=== PATIENT | female | born 1965 | race Caucasian/White ===

== ENCOUNTER 2023-02-11 07:31 | Outpatient (CLI) | payer BC, SELFPAY | END 2023-02-11 07:32 | disposition home or self-care (01) | PROVIDERS: PCP Internal Medicine; Referring Provider Internal Medicine; Visit Provider Internal Medicine | DX: E03.2 Hypothyroidism due to medicaments and other exogenous substances (principal); E03.9 Hypothyroidism, unspecified; Z13.1 Encounter for screening for diabetes mellitus; Z13.6 Encounter for screening for cardiovascular disorders | CPT/HCPCS: 80061; 82947; 84443 ==

== ENCOUNTER 2023-04-05 14:53 | Outpatient (CLI) | payer BC, SELFPAY ==
--- NOTE | 2023-04-05 15:00 | CRLHL7_ITS ---
For Patients: As a result of the Century Cures Act, medical imaging exams and procedure reports are released immediately into your electronic medical record. You may view this report before your referring provider. If you have questions, please contact your health care provider. BILATERAL DIGITAL SCREENING MAMMOGRAM WITH TOMOSYNTHESIS AND COMPUTER-AIDED DETECTION CLINICAL HISTORY: Routine screening exam. COMPARISON: None. TECHNIQUE: Digital mammogram in CC and MLO projections including computer-aided detection (CAD). Tomosynthesis utilized. BREAST COMPOSITION: There are areas of scattered fibroglandular density. FINDINGS: RIGHT Breast: Focal asymmetric density within the upper outer quadrant 6 cm from the nipple. LEFT Breast: No suspicious findings. IMPRESSION: RIGHT breast asymmetry/mass. RECOMMENDATIONS: Additional mammographic views of the RIGHT breast including 3D spot compression CC/MLO. RIGHT breast ultrasound may also be required. BI-RADS Category 0: Incomplete: Need Additional Imaging Evaluation and/or Prior Mammograms for Comparison [facility] will contact the patient for follow-up. A lay language report of this examination will be provided to the patient. Dictated by Pranay Berry MD @ 04/20/2023 12:38:11 PM laisha/Dictated by: Pranay Berry MD @ 04/20/2023 12:38:00 PM (Electronically Signed)
== END 2023-04-05 14:54 | disposition home or self-care (01) ==
LOC: MAMMO 14:54
PROVIDERS: PCP Internal Medicine; Visit Provider Internal Medicine
DX: Z12.31 Encounter for screening mammogram for malignant neoplasm of breast (principal); N63.10 Unspecified lump in the right breast, unspecified quadrant
CPT/HCPCS: 77063; 77067

== ENCOUNTER 2023-05-04 10:33 | Outpatient (CLI) | payer BC, SELFPAY ==
--- NOTE | 2023-05-04 10:45 | CRLHL7_ITS ---
For Patients: As a result of the Cures Act, medical imaging exams and procedure reports are released immediately into your electronic medical record. You may view this report before your referring provider. If you have questions, please contact your health care provider. DIGITAL DIAGNOSTIC RIGHT MAMMOGRAM USING TOMOSYNTHESIS AND COMPUTER-AIDED DETECTION INDICATION: Follow-up a RIGHT breast asymmetry. TECHNIQUE: Spot compression views of the upper outer RIGHT breast in the CC and MLO projection. Digital breast tomosynthesis utilized. COMPARISON: 02/04/2021. 02/12/2022. FINDINGS: Breast Composition: There are areas of scattered fibroglandular density. No underlying mass. No architecture distortion. No suspicious microcalcifications. Ultrasound is not recommended at this time. Annual mammography is recommended. These findings were discussed briefly with the patient. IMPRESSION: Negative additional views of the RIGHT breast. Annual mammography recommended. BI-RADS Category 1: Negative A lay language report of this examination will be provided to the patient. Dictated by: Arya Cordova MD @05/04/2023 11:16:06 AM /Dictated by: Arya Cordova MD @ 05/04/2023 11:16:00 AM (Electronically Signed)
== END 2023-05-04 10:34 | disposition home or self-care (01) ==
LOC: MAMMO 10:33
PROVIDERS: PCP Internal Medicine; Visit Provider Internal Medicine
DX: N63.10 Unspecified lump in the right breast, unspecified quadrant (principal); R92.8 Other abnormal and inconclusive findings on diagnostic imaging of breast
CPT/HCPCS: 77065; G0279

== ENCOUNTER 2023-11-29 14:04 | Outpatient (CLI) | payer BC, SELFPAY | END 2023-11-29 14:05 | disposition home or self-care (01) | LOC: NFLDREF 14:04 | PROVIDERS: PCP Internal Medicine; Visit Provider Internal Medicine | DX: Z01.818 Encounter for other preprocedural examination (principal) | CPT/HCPCS: 80053 ==

== ENCOUNTER 2023-12-12 06:04 | Day surgery (SDC) | payer BC, SELFPAY ==
[2023-12-12] VITALS (19 sets, daily range): BP systolic 117–155; BP diastolic 63–94; PULSE 39–61; RESP 14–19; TEMP 36.1–36.4; O2SAT 90–100; BMI 38.4
[2023-12-12] MEDS: ACETAMINOPHEN 500 MG TABLET 1000 MG PO (07:02)
[2023-12-12] MEDS: SODIUM CHLORIDE 0.9 % (FLUSH) 10 ML SYRINGE IVF ×2 (07:03→15:04)
[2023-12-12] MEDS: LACTATED RINGERS 1000 ML 1,000 ML 100 ML IV ×2 (07:03→07:57)
[2023-12-12] MEDS: OXYCODONE (CR) 10 MG TAB.ER.12H PO (07:03)
[2023-12-12] MEDS: fentaNYL 100 MCG/2 ML inj IVP (07:07)
[2023-12-12] MEDS: MIDAZOLAM HCL 1 MG/ML inj IVP (07:07)
--- NOTE | 2023-12-12 07:08 | W.PM.H&PU ---
History & Physical Update History & Physical Update H&P Reviewed and patient assessed: No changes noted
--- NOTE | 2023-12-12 07:23 | SUR.PREOP ---
TIME?OUT:?0707 PT/RN/MDA?VERIFICATION?OF?SURGICAL?SITE,?PROCEDURE,?AND?CONSENT OBTAINED?PRIOR?TO?INVASIVE?PROCEDURE.
[2023-12-12] MEDS: CEFAZOLIN 2 GM in 0.9 % SODIUM CHLORIDE Mini-bag 100 ML IVPB (07:30)
[2023-12-12] MEDS: TRANEXAMIC ACID 100 MG/ML INJ 1000 MG IV (07:35)
--- NOTE | 2023-12-12 08:49 | PM.ORPRC ---
Procedure Note Date of procedure: 12/12/23 Procedure: PREOPERATIVE DIAGNOSIS: 1. Right knee osteoarthritis, primary, severe 2. Right knee retained deep implant (screws for ACL fixation in the remote past) POSTOPERATIVE DIAGNOSIS: 1. Right knee osteoarthritis, primary, severe 2. Right knee retained deep implant (screws for ACL fixation in the remote past) PROCEDURE: 1. Right total knee arthroplasty 2. Right distal femur deep implant removal (ACL screw) SURGEON: Mook Salvador MD. TUBE WINDER: OLIVERIO Barkley - Of note, a skilled assistant printer floor covering was critical for this case to aid in patient positioning, tissue retraction, limb manipulation/positioning, and closure. ANESTHESIA: Spinal anesthetic EBL: 50ml IMPLANTS: DePuy J&J uncemented femur/tibia, cemented patella TKA - Attune Press fit PS femur size 6 narrow, size 5 tibia, 5 poly spacer, 30 a mm cemented patella TOURNIQUET: 90 min at 300 torr COMPLICATIONS: None evident INDICATIONS: The patient is a pleasant 58-year-old female who has experienced severe right knee pain and difficulty bearing weight. Workup included x-rays which revealed severe secondary osteoarthrosis in the knee. History is notable for previous ACL reconstruction of BTB autograft with metallic screws for both tibial and femoral fixation. Beyond that, the deformity, the dysfunction, and the pain limited her daily life. Given the failure of nonoperative management, recommendation was made for surgery. FINDINGS: Full-thickness chondral loss medial compartment as well as lateral and patellofemoral compartments. Degenerative meniscus pathology. ACL a centrally absent. Metallic screws in both the femur and tibia noted, but only the femoral screw was blocking and our implant. DESCRIPTION OF PROCEDURE: Following a thorough discussion of risks, benefits, and alternatives consent was obtained and the right knee was marked. The patient was brought to the operating room and placed supine on the operating table. Induction of anesthesia was undertaken. 2 g IV Ancef and 1 g tranexamic acid was administered within 1 hr of incision preoperatively. Proper time-out was performed identifying proper patient, site, procedure. The operative extremity was prepped and draped in the appropriate sterile fashion using ChloraPrep after the patient was positioned supine with all bony prominences well padded. A longitudinal, anterior, midline skin incision was made starting approximately 3cm proximal to the superior pole of the patella and advanced distal to the tibial tubercle. A sub vastus approach was utilized. After mobilizing the patella, retropatellar fatpad was resected and the synovium in the suprapatellar pouch excised to visualize the anterior femoral cortex. We began with cutting the patella to help improve mobility of this patella and quad tendon. The patella was initially measured and found have a thickness of 30 mm. It was resected back to approximately 28.5 mm. Femoral preparation was performed via an intramedullary guide. Step drill allowed access into the femoral canal. The distal cutting guide was placed with 5? of valgus and 11 mm cut on the distal femur due to a 5-7 degree flexion contracture. Femur was sized using a anterior referencing guide in 3? of external rotation. This found have a best fit with the sizing noted above. The 4 in 1 cutting block was then placed, and the distal femur shaped accordingly. The box cut was then created but metallic screw on the distal femur was encountered. We had to remove this. A screw removal set was opened to help remove the screw. Beyond that, rongeur and curette were utilized to debride the screw tunnel. Thereafter, the trial implant was inserted to confirm appropriate fit. We turned our attention to the proximal tibia. Extramedullary guide was utilized for cutting with the goal of being 90 degree cut from the mechanical axis of the tibia in the varus/valgus plane utilizing tibial crest as the primary alignment. Initially a 2 mm resection was performed from the medial tibial plateau. Ultimately, balancing was achieved in both flexion and extension in both varus and valgus. The knee was able to achieve full extension comfortably. It was sized to be a best fit with as noted above. The patella prep was completed with drilling and a trial placed. At this stage, trial implants were removed, the tibia and femoral components were opened and inserted. Thereafter, the patella was thoroughly irrigated normal saline and dried. The cement was previously mixed on the back table and cement placed followed by the implant. This was clamped and allowed remained stable until the cement cured. The real poly spacer was opened and inserted. All extra cement was removed, and a 3 min Betadine soak performed. Finally, a final irrigation round with normal saline was performed. Closure performed with 0 PDS and #0 Stratafix for the quad tendon/retinaculum. 2-0 Vicryl/Stratafix for the subcutaneous and 4-0 Monocryl for subcuticular closure. Dressings were applied and the patient was awoken from anesthesia after the tourniquet deflated and transferred the PACU in stable condition. A skilled assistant printer floor covering was critical for this case to aid in patient positioning, tissue retraction, bone exposure, limb manipulation/positioning, patient safety, and closure. PLAN: 1. Weight bear as tolerated operative extremity. 2. 23 hr perioperative antibiotics. 3. Ice. 4. PT/OT consults for ambulation assistance/mobility education. 5. Social work consult for discharge planning. 6. DVT prophylaxis with at SCDs, Cachorro Hose, and aspirin twice daily.
--- NOTE | 2023-12-12 09:32 | W.ANESCHARGE ---
Anesthesia Charges Start Date/Time Anesthesia Start Date: 12/12/23 Anesthesia Start Time: 07:21 Stop Date/Time Anesthesia Stop Date: 12/12/23 Anesthesia Stop Time: 09:31
--- NOTE | 2023-12-12 09:36 | CRLHL7_ITS ---
For Patients: As a result of the Cures Act, medical imaging exams and procedure reports are released immediately into your electronic medical record. You may view this report before your referring provider. If you have questions, please contact your health care provider. Indication: POST SURGERY TOTAL KNEE Technique: Two views right knee Findings/Impression: Hardware from a right total knee arthroplasty is in satisfactory position. Bone alignment is normal. No sign of acute fracture. Postop changes are within normal limits. Dictated by Pranay Berry MD @ 12/13/2023 6:16:33 AM (Electronically Signed)
--- NOTE | 2023-12-12 09:58 | SUR.PHASEI ---
Patient meets discharge criteria from PACU
--- NOTE | 2023-12-12 10:21 | P.NB_ITS ---
Nerve Block Nerve Block Time Seen by Provider: 07:13 Date Seen: 12/12/23 Type of block requested by surgeon for post-operative analgesia: adductor canal Side: right Time out performed: Yes Verification of patient name: Yes Verification of date of : Yes Site marking: site marked Name of person performing procedure: Hugh Continuous monitoring Was continuous monitoring of O2 sat, B/P, monitor and storage bin tender, recorded every 15 minutes?: Yes Procedure Checklist: sterile prep, needles and gloves Ultrasound guided. Images saved: Yes Medications given in 5ml increments after negative aspiration: Ropivicaine %: 0.5 mL: 20 Needle gauge: 20 Decadron (mg): 10 Precedex (mcg): 25 Patient tolerated procedure well: Yes Additional comments: Needle noted adjacent to nerve Block Charges Block Charge (with Pro Fee): Femoral Nerve Use of Ultrasound Machine for Block: Yes- US Guidance/pain block
--- NOTE | 2023-12-12 10:22 | W.PM.NB ---
Nerve Block Nerve Block Time Seen by Provider: 07:13 Date Seen: 12/12/23 Type of block requested by surgeon for post-operative analgesia: geniculars Side: right Time out performed: Yes Verification of patient name: Yes Verification of date of : Yes Site marking: site marked Name of person performing procedure: Hugh Continuous monitoring Was continuous monitoring of O2 sat, B/P, color television console monitor, recorded every 15 minutes?: Yes Procedure Checklist: sterile prep, needles and gloves Medications given in 5ml increments after negative aspiration: Ropivicaine %: 0.5 mL: 9 Needle gauge: 25 Patient tolerated procedure well: Yes Block Charges Block Charge (with Pro Fee): Genicular Nerve Block Use of Ultrasound Machine for Block: No
[2023-12-12] MEDS: METOCLOPRAMIDE HCL 5 MG/ML INJ 10 MG IVP (10:33)
[2023-12-12] MEDS: OxyCODONE/APAP 5-325 TABLET PO (12:04)
[2023-12-12] MEDS: hydrOXYzine pamoate 25 MG CAPSULE PO (12:11)
--- NOTE | 2023-12-12 14:08 | SUR.PHASEII ---
pt up to bathroom with walker and SBA. Tolerated activity without difficulty. pt voided and felt like she emptied her bladder. Upon arriving to wheelchair after bathroom, pt states a wave of nausea and lightheaded- but not as bad as before states pt. Wheelchair to PT with Darryl.
[2023-12-12] MEDS: ONDANSETRON 2 MG/ML inj 4 MG IVP (15:04)
--- NOTE | 2023-12-12 15:18 | SUR.PHASEII ---
pt passed PT evaluation. Reviewed instructions with son. All questions answered. pt was given zofran before discharge to help with nausea. wheelchair out to car with RN.
== END 2023-12-12 15:19 | disposition home or self-care (01) ==
PROVIDERS: PCP Internal Medicine; Visit Provider Orthopaedic Surgery Sports Medicine
PROC: (CPT 27447; principal; 2023-12-12 07:15)
DX: M17.11 Unilateral primary osteoarthritis, right knee (principal); G89.18 Other acute postprocedural pain; Z47.2 Encounter for removal of internal fixation device; E66.9 Obesity, unspecified; Z68.38 Body mass index [BMI] 38.0-38.9, adult
CPT/HCPCS: 27447; 20680; 01402; 64447; 64454; 73560; 76942; 97110; 97161; 97530; A9270; C1776; J0690; J1100; J1885; J2250; J2405; J2704; J2765; J2795; J3010; J7120

== ENCOUNTER 2024-01-27 10:30 | Outpatient (RCR) | payer BC, SELFPAY | END 2024-05-26 23:59 | disposition home or self-care (01) | PROVIDERS: PCP Internal Medicine; Visit Provider Orthopaedic Surgery Sports Medicine | DX: M17.31 Unilateral post-traumatic osteoarthritis, right knee (principal); M25.561 Pain in right knee; Z74.09 Other reduced mobility; R26.9 Unspecified abnormalities of gait and mobility; M62.81 Muscle weakness (generalized); Z51.89 Encounter for other specified aftercare | CPT/HCPCS: 97110; 97116; 97140; 97161; 97164 ==

== ENCOUNTER 2024-03-12 14:10 | Outpatient (CLI) | payer BC, SELFPAY | END 2024-03-12 14:11 | disposition home or self-care (01) | LOC: NFLDREF 03-16 04:55 | PROVIDERS: PCP Internal Medicine; Referring Provider Internal Medicine; Visit Provider Internal Medicine | DX: E03.9 Hypothyroidism, unspecified (principal); M17.0 Bilateral primary osteoarthritis of knee | CPT/HCPCS: 80053; 84443 ==

== ENCOUNTER 2024-03-21 06:11 | Day surgery (SDC) | payer BC, SELFPAY ==
[2024-03-21] VITALS (20 sets, daily range): BP systolic 109–160; BP diastolic 59–89; PULSE 52–77; RESP 12–20; TEMP 36.4–36.7; O2SAT 93–99; BMI 35.2
[2024-03-21] MEDS: ACETAMINOPHEN 500 MG TABLET 1000 MG PO (06:40)
[2024-03-21] MEDS: OXYCODONE (CR) 10 MG TAB.ER.12H PO (06:40)
[2024-03-21] MEDS: SODIUM CHLORIDE 0.9 % (FLUSH) 10 ML SYRINGE IVF (06:40)
--- NOTE | 2024-03-21 07:09 | SUR.PREOP ---
TIME?OUT:?0711 PT/RN/MDA?VERIFICATION?OF?SURGICAL?SITE Left Knee,?PROCEDURE Nerve Block,?AND?CONSENT OBTAINED?PRIOR?TO?INVASIVE?PROCEDURE.
[2024-03-21] MEDS: fentaNYL 100 MCG/2 ML inj IVP (07:11)
[2024-03-21] MEDS: MIDAZOLAM HCL 1 MG/ML inj IVP (07:11)
--- NOTE | 2024-03-21 07:14 | W.PM.H&PU ---
History & Physical Update History & Physical Update H&P Reviewed and patient assessed: No changes noted
[2024-03-21] MEDS: CEFAZOLIN 2 GM in 0.9 % SODIUM CHLORIDE Mini-bag 100 ML IVPB (07:35)
[2024-03-21] MEDS: TRANEXAMIC ACID 100 MG/ML INJ 1000 MG IV (07:40)
--- NOTE | 2024-03-21 08:03 | W.ANESCHARGE ---
Anesthesia Charges Start Date/Time Anesthesia Start Date: 03/21/24 Anesthesia Start Time: 07:21 Stop Date/Time Anesthesia Stop Date: 03/21/24 Anesthesia Stop Time: 09:31
--- NOTE | 2024-03-21 08:04 | W.PM.NB ---
Nerve Block Nerve Block Time Seen by Provider: 07:12 Date Seen: 03/21/24 Type of block requested by surgeon for post-operative analgesia: femoral Side: left Time out performed: Yes Verification of patient name: Yes Verification of date of : Yes Site marking: site marked Name of person performing procedure: Hugh Continuous monitoring Was continuous monitoring of O2 sat, B/P, surveillance system monitor, recorded every 15 minutes?: Yes Procedure Checklist: sterile prep, needles and gloves Ultrasound guided. Images saved: Yes Medications given in 5ml increments after negative aspiration: Marcaine %: 0.25 mL: 15 Needle gauge: 20 Precedex (mcg): 25 Patient tolerated procedure well: Yes Block Charges Block Charge (with Pro Fee): Femoral Nerve Use of Ultrasound Machine for Block: Yes- US Guidance/pain block
--- NOTE | 2024-03-21 08:04 | W.PM.NB ---
Nerve Block Nerve Block Time Seen by Provider: 07:12 Date Seen: 03/21/24 Type of block requested by surgeon for post-operative analgesia: geniculars Side: left Time out performed: Yes Verification of patient name: Yes Verification of date of : Yes Site marking: site marked Name of person performing procedure: Hugh Continuous monitoring Was continuous monitoring of O2 sat, B/P, monitoring tech, recorded every 15 minutes?: Yes Procedure Checklist: sterile prep, needles and gloves Ultrasound guided. Images saved: Yes Medications given in 5ml increments after negative aspiration: Marcaine %: 0.25 mL: 9 Needle gauge: 25 Patient tolerated procedure well: Yes Block Charges Block Charge (with Pro Fee): Genicular Nerve Block
[2024-03-21] MEDS: 0.9 % SODIUM CHLORIDE 1000 ml 1,000 ML 75 ML IV (08:09)
--- NOTE | 2024-03-21 08:46 | PM.ORPRC ---
Procedure Note Date of procedure: 03/21/24 Procedure: PREOPERATIVE DIAGNOSIS: 1. Left knee osteoarthritis, primary, severe POSTOPERATIVE DIAGNOSIS: 1. Left knee osteoarthritis, primary, severe PROCEDURE: 1. Left total knee arthroplasty (press-fit) SURGEON: Mook Salvador MD. MARKETING/SALES PERSON: OLIVERIO Barkley - Of note, a skilled assistant account executive was critical for this case to aid in patient positioning, tissue retraction, limb manipulation/positioning, and closure. ANESTHESIA: Spinal anesthetic EBL: 50ml IMPLANTS: DePuy J&J uncemented femur/tibia, cemented patella TKA - Attune Press fit PS femur size 6 narrow, size 4 tibia, 5 mm poly spacer, 38 mm cemented patella TOURNIQUET: 90 min at 300 torr COMPLICATIONS: None evident INDICATIONS: The patient is a pleasant 58-year-old female who has experienced severe left knee pain and difficulty bearing weight. Workup included x-rays which revealed severe osteoarthrosis in the knee. Given the deformity, the dysfunction, and the pain, as well as the failure of nonoperative management, recommendation was made for surgery. FINDINGS: Full-thickness diffuse chondromalacia patellofemoral compartment. To lesser degree medial and lateral compartment pathology. Degenerative medial and lateral meniscus pathology noted. Moderate effusion upon entering the joint. DESCRIPTION OF PROCEDURE: Following a thorough discussion of risks, benefits, and alternatives consent was obtained and the left knee was marked. The patient was brought to the operating room and placed supine on the operating table. Induction of anesthesia was undertaken. 2 g IV Ancef and 1 g tranexamic acid was administered within 1 hr of incision preoperatively. Proper time-out was performed identifying proper patient, site, procedure. The operative extremity was prepped and draped in the appropriate sterile fashion using ChloraPrep after the patient was positioned supine with all bony prominences well padded. A longitudinal, anterior, midline skin incision was made starting approximately 3cm proximal to the superior pole of the patella and advanced distal to the tibial tubercle. A sub vastus approach was utilized . After mobilizing the patella, retropatellar fatpad was resected and the synovium in the suprapatellar pouch excised to visualize the anterior femoral cortex. We began with cutting the patella to help improve mobility of this patella and quad tendon. The patella was initially measured and found have a thickness of 22.5 mm. It was resected back to approximately 13.5 mm. Femoral preparation was performed via an intramedullary guide. Step drill allowed access into the femoral canal. The distal cutting guide was placed with 5? of valgus and 10 mm cut on the distal femur. Femur was sized using a posterior referencing guide in 3? of external rotation. This found have a best fit with the sizing noted above. The 4 in 1 cutting block was then placed, and the distal femur shaped accordingly. The box cut was then created and the trial implant inserted to confirm appropriate fit. We turned our attention to the proximal tibia. Extramedullary guide was utilized for cutting with the goal of being 90 degree cut from the mechanical axis of the tibia in the varus/valgus plane utilizing tibial crest as the primary alignment. Initially a 2 mm resection was performed from the medial tibial plateau. Ultimately, balancing was achieved in both flexion and extension in both varus and valgus. The knee was able to achieve full extension comfortably. It was sized to be a best fit with as noted above. The patella prep was completed with drilling and a trial placed. At this stage, trial implants were removed, the tibia and femoral components were opened and inserted. Thereafter, the patella was thoroughly irrigated normal saline and dried. The cement was previously mixed on the back table and cement placed followed by the implant. This was clamped and allowed remained stable until the cement cured. The real poly spacer was opened and inserted. All extra cement was removed, and a 3 min Betadine soak performed. Finally, a final irrigation round with normal saline was performed. Closure performed with 0 PDS and #0 Stratafix for the quad tendon/retinaculum. 2-0 Vicryl/Stratafix for the subcutaneous and 4-0 Monocryl for subcuticular closure. Dressings were applied and the patient was awoken from anesthesia after the tourniquet deflated and transferred the PACU in stable condition. A skilled assistant account executive was critical for this case to aid in patient positioning, tissue retraction, bone exposure, limb manipulation/positioning, patient safety, and closure. PLAN: 1. Weight bear as tolerated operative extremity. 2. 23 hr perioperative antibiotics. 3. Ice. 4. PT/OT consults for ambulation assistance/mobility education. 5. Social work consult for discharge planning. 6. DVT prophylaxis with at SCDs, Cachorro Hose, and aspirin twice daily.
--- NOTE | 2024-03-21 09:23 | CRLHL7_ITS ---
For Patients: As a result of the Cures Act, medical imaging exams and procedure reports are released immediately into your electronic medical record. You may view this report before your referring provider. If you have questions, please contact your health care provider. Indication: Left knee arthroplasty Technique: Left knee 2 view Findings: Hardware from a left knee arthroplasty is in satisfactory position. Bone alignment is normal. No sign of acute fracture. There are postoperative changes in the soft tissues. Dictated by Luigi Everett MD @ 03/23/2024 8:48:54 AM (Electronically Signed)
--- NOTE | 2024-03-21 09:55 | W.ANESCHARGE ---
Anesthesia Charges Start Date/Time Anesthesia Start Date: 03/21/24 Anesthesia Start Time: 07:15 Stop Date/Time Anesthesia Stop Date: 03/21/24 Anesthesia Stop Time: 09:21
[2024-03-21] MEDS: ACETAMINOPHEN 325 MG TABLET PO (12:31)
[2024-03-21] MEDS: HYDROmorphone 2 MG TABLET PO (12:32)
== END 2024-03-21 13:36 | disposition home or self-care (01) ==
PROVIDERS: PCP Internal Medicine; Visit Provider Orthopaedic Surgery Sports Medicine
PROC: (CPT 27447; principal; 2024-03-21 07:15)
DX: M17.12 Unilateral primary osteoarthritis, left knee (principal); G89.18 Other acute postprocedural pain
CPT/HCPCS: 27447; 01402; 64447; 64454; 73560; 76942; 97110; 97116; 97161; 97530; A9270; C1776; J0665; J0690; J1100; J2250; J2371; J2405; J2704; J3010; J7030

== ENCOUNTER 2024-05-04 12:51 | Outpatient (CLI) | payer BC, SELFPAY ==
--- NOTE | 2024-05-04 13:00 | CRLHL7_ITS ---
For Patients: As a result of the Century Cures Act, medical imaging exams and procedure reports are released immediately into your electronic medical record. You may view this report before your referring provider. If you have questions, please contact your health care provider. BILATERAL SCREENING MAMMOGRAM WITH COMPUTER-AIDED DETECTION AND TOMOSYNTHESIS TECHNIQUE: CC and MLO views were obtained. These mammographic images have been obtained using full-field digital technique. These mammographic images were interpreted with the benefit of computer-aided detection. Breast Tomosynthesis was used in this interpretation. COMPARISON FILM: 02/10/22, 02/04/21, 04/05/23. FINDINGS: There are scattered areas of fibroglandular density. IMPRESSION: There is no radiographic evidence for malignancy. ASSESSMENT: BI-RADS Category 1: Negative RECOMMENDATION: Routine screening mammogram in 1 year. A lay language report of this examination will be provided to the patient. Pranay Berry M.D. Diagnostic Radiologist [email or web address] SP/Dictated by: Pranay Berry MD @ 05/09/2024 11:16:00 AM (Electronically Signed)
== END 2024-05-04 12:52 | disposition home or self-care (01) ==
LOC: MAMMO 12:51
PROVIDERS: PCP Internal Medicine; Visit Provider Internal Medicine
DX: Z12.31 Encounter for screening mammogram for malignant neoplasm of breast (principal)
CPT/HCPCS: 77063; 77067

== ENCOUNTER 2024-05-16 07:52 | Outpatient (CLI) | payer BC, SELFPAY ==
--- NOTE | 2024-05-16 08:15 | CRLHL7_ITS ---
For Patients: As a result of the Century Cures Act, medical imaging exams and procedure reports are released immediately into your electronic medical record. You may view this report before your referring provider. If you have questions, please contact your health care provider. Technique: Double-contrast esophagram performed after the uneventful administration of effervescent crystals and thick barium. Fluoroscopy time 1.11 minute. Indication: Dysphagia, hiatal hernia Comparison: None. Findings: 4 cm hiatal hernia is present which remains unchanged throughout the examination. Decreased esophageal clearance of contrast during the exam. No stricture or ulcer. No mucosal irregularity. No diverticulum. Spontaneous reflux is present to the proximal esophagus. Impression: 4 cm hiatal hernia with decreased esophageal motility and spontaneous reflux. Dictated by Pranay Berry MD @ 05/16/2024 9:18:57 AM (Electronically Signed)
== END 2024-05-16 07:53 | disposition home or self-care (01) ==
LOC: RAD 07:52
PROVIDERS: PCP Internal Medicine; Visit Provider Internal Medicine
DX: R13.10 Dysphagia, unspecified (principal); K44.9 Diaphragmatic hernia without obstruction or gangrene; K21.9 Gastro-esophageal reflux disease without esophagitis
CPT/HCPCS: 74221

== ENCOUNTER 2024-06-11 14:30 | Outpatient (RCR) | payer BC, SELFPAY | END 2024-06-12 12:44 | disposition home or self-care (01) | PROVIDERS: PCP Internal Medicine; Visit Provider Orthopaedic Surgery Sports Medicine | DX: Z96.652 Presence of left artificial knee joint (principal); M25.562 Pain in left knee; Z74.09 Other reduced mobility; R26.89 Other abnormalities of gait and mobility; R29.898 Other symptoms and signs involving the musculoskeletal system; Z51.89 Encounter for other specified aftercare | CPT/HCPCS: 97110; 97140; 97162 ==

== ENCOUNTER 2025-05-07 15:22 | Outpatient (CLI) | payer BC, SELFPAY ==
--- NOTE | 2025-05-07 15:40 | CRLHL7_ITS ---
For Patients: As a result of the Century Cures Act, medical imaging exams and procedure reports are released immediately into your electronic medical record. You may view this report before your referring provider. If you have questions, please contact your health care provider. INDICATION: BILATERAL SCREENING MAMMOGRAM, ASYMPTOMATIC 59 Y/O FEMALE COMPARISON: 05/04/2024, 05/04/2023, 04/05/2023 TECHNIQUE: Digital mammogram in CC and MLO projections including computer-aided detection (CAD) and tomosynthesis. BREAST COMPOSITION: There are scattered areas of fibroglandular density. FINDINGS: No suspicious findings. ASSESSMENT: BI-RADS 1 Negative RECOMMENDATION: Annual screening mammogram. A lay language report of this examination will be provided to the patient. Dictated by: Pranay Berry MD @ 05/08/2025 11:17:14 (Electronically Signed)
== END 2025-05-07 15:23 | disposition home or self-care (01) ==
PROVIDERS: PCP Internal Medicine; Visit Provider Internal Medicine
DX: Z12.31 Encounter for screening mammogram for malignant neoplasm of breast (principal)
CPT/HCPCS: 77063; 77067

== ENCOUNTER 2025-05-13 08:14 | Outpatient (CLI) | payer BC, SELFPAY | END 2025-05-13 08:15 | disposition home or self-care (01) | LOC: NFLDREF 05-17 08:08 | PROVIDERS: PCP Internal Medicine; Referring Provider Internal Medicine; Visit Provider Internal Medicine | DX: E03.9 Hypothyroidism, unspecified (principal) | CPT/HCPCS: 84443 ==